=== PATIENT | male | born 1970 | race Caucasian/White ===

== ENCOUNTER → 2017-12-31 | Day surgery (SDC) | payer BC ==
[~2017-12-31] VITALS: Ht 193 cm; Wt 129.3 kg
[~2017-12-31] MED LIST: GARL1CAP15 PO; IBUP-56 PO; KET10 PO; LIDOCAINE MPF 1% 5 ML VIAL ONE; LIDOCAINE/SOD BICARB 8.4% SYR ID ONE; NORMOSOL R SOLN(*) 1000 ML BAG 1,000 ML IV PRN; OMEG-11 PO; OXYC-865 PO; PROPOFOL EMUL(*) 10MG/ML 20 ML 40 ML ONE
[2017-12-31 07:00] VITALS: BP 144/94
--- NOTE | 2017-12-31 07:22 | Post Operative Progress Note ---
Post Operative Progress Note Date: December 31, 2017 Time: 08:29 Surgeon: sampson Anesthesia: dr ortiz Pre-Op Diagnosis: history of polyps Post-Op Diagnosis: 1 mm polyp at 20 cm Procedure(s): colonoscopy and polypectomy LULÚ CASILLAS MD December 31, 2017 07:21
--- NOTE | 2017-12-31 07:22 | Short(Outpt) Discharge Summary ---
Discharge Summary Reason for Hosp/Final Diag: (1) Encounter for colonoscopy due to history of adenomatous colonic polyps Hospital Course & Plan: 1 mm polyp at 20 cm Departure Discharge to: Home Discharge Instructions Home Meds No Active Prescriptions or Reported Meds Diet: Regular Activity: As Tolerated LULÚ CASILLAS MD December 31, 2017 07:22
[2017-12-31 08:27] VITALS: BP 119/72
[2017-12-31 08:30] VITALS: BP 125/76
[2017-12-31 09:03] VITALS: BP 121/77
[2017-12-31 09:04] VITALS: BP 122/85
--- NOTE | 2017-12-31 14:31 | OPERATIVE REPORT 1 ---
EVENT DATE: December 31, 2017 SURGEON: Thierry Shaffer MD ANESTHESIOLOGIST: Patel Palencia MD ANESTHESIA: Sedation. PREOPERATIVE DIAGNOSIS Personal history of polyps. POSTOPERATIVE DIAGNOSIS A 1 mm polyp at 20 cm. PROCEDURE PERFORMED Colonoscopy with polypectomy. DESCRIPTION OF PROCEDURE Patient was placed in the left lateral decubitus position and given intravenous sedation. Rectal exam was unremarkable. Flexible colonoscope was inserted and advanced to the cecum. He had an excellent bowel prep. The ileocecal valve and base of the cecum were identified. Scope was slowly withdrawn. Care was taken to look behind the haustral folds. No abnormalities were noted in the cecum, right colon, transverse, descending, or sigmoid colon. At 20 cm, he had a 1 mm projection. This was removed with the cold cup. The rest of the rectum was normal. Scope was retroflexed. That appeared to be normal. Patient should have a repeat colonoscopy in five years. [facility]
== END ==
LOC: OR 00:51
PROVIDERS: ATTEND Surgery
DX: Z12.11 Encounter for screening for malignant neoplasm of colon (principal); K63.5 Polyp of colon; Z86.010 Personal history of colon polyps
CPT/HCPCS: 00811; 45380; 88305; J2001; J2704